=== PATIENT | male | born 1990 | race Caucasian/White ===

== ENCOUNTER 2019-11-12 22:14 | Emergency (ER) | payer MEDICAID, SELFPAY ==
[~2019-11-12] VITALS: Ht 172.7 cm; Wt 81.6 kg
[2019-11-12 22:17] VITALS: Ht 172.7 cm; Wt 81.6 kg
[2019-11-12 23:38] VITALS: BP 142/86
== END 2019-11-12 23:38 | disposition home or self-care (01) ==
LOC: ED 22:14
DX: J06.9 Acute upper respiratory infection, unspecified (principal); J45.909 Unspecified asthma, uncomplicated; Z20.828 Contact with and (suspected) exposure to other viral communicable diseases
CPT/HCPCS: Q0092; U0003-CS